=== PATIENT | male | born 1950 | race Caucasian/White ===

== ENCOUNTER 2019-07-30 11:33 | Emergency (ER) | payer MEDICARE ==
[~2019-07-30] VITALS: Ht 180.3 cm; Wt 111.1 kg
[~2019-07-30 11:33] MED LIST: AMLO5 PO; ATEN50; ATEN50 PO; Antivert25 MG; BUSP5 PO; CEPH500 PO; CLOP75 PO; COUMADIN; Cephalexin500 MG PO; FISH1000; FURO20; HYDACE5; HYDACE5 PO; HYDCHL25 PO; IBUP600 PO; NAPR220 PO; NAPR550 PO; OXYACE5T PO; Percocet 5-3251 EACH PO; Pravachol40 MG PO; SERT25 PO; SULTRIDS; SULTRIDS PO; TERA5 PO; WARF10 PO; WHEELCHAIR USE
[2019-07-30 12:13] LABS: BASOPHILS ABSOLUTE AUTO 0.09 K/mm3 (0.00-0.23); BASOPHILS PERCENT AUTO 1 % (0-2); EOSINOPHILS ABSOLUTE AUTO 0.12 K/mm3 (0.00-0.68); EOSINOPHILS PERCENT AUTO 1 % (0-6); Hematocrit 45.1 % (37.0-53.0); Hemoglobin 15.3 g/dL (13.5-17.5); IMMATURE GRAN ABSOLUTE AUTO 0.03 K/mm3 (0.00-0.10); IMMATURE GRAN PERCENT AUTO 0 % (0-1); LYMPHOCYTES ABSOLUTE AUTO 1.87 K/mm3 (0.84-5.20); LYMPHOCYTES PERCENT AUTO 21 % (21-46); MONOCYTES ABSOLUTE AUTO 0.54 K/mm3 (0.16-1.47); MONOCYTES PERCENT AUTO 6 % (4-13); Mean Corpuscular HGB 33.3 pg (26.0-34.0); Mean Corpuscular HGB Conc 33.9 g/dL (31.5-36.5); Mean Corpuscular Volume 98 fL (80-100); Mean Platelet Volume 9.1 fL (9.1-12.4); NEUTROPHILS PERCENT AUTO 70 % (41-73); Platelet Count 195 K/mm3 (150-400); RDW Coefficient Variation 11.9 % (11.7-14.2); RDW Standard Deviation 42.9 fL (35.1-46.3); White Blood Cell Count 8.85 K/mm3 (4.00-11.30)
[2019-07-30 12:24] LABS: Troponin I <0.015 ng/mL (0.000-0.040)
[2019-07-30 12:26] LABS: Alanine Aminotransfer (ALT/SGP 22 U/L (12-78); Albumin, Blood 3.1 g/dL (3.4-5.0); Albumin/Globulin Ratio 0.9 (0.8-1.8); Alk Phos 94 U/L (50-136); Anion Gap 7 mmol/L (6-16); Aspartate Aminotrans (AST/SGOT 22 U/L (12-37); Bilirubin, Total 0.7 mg/dL (0.1-1.0); Blood Urea Nitrogen 5 mg/dL (8-24); Bun/Creatinine Ratio 5.8 (12.0-20.0); CO2, Blood 28 mmol/L (21-32); Calcium, Blood 8.8 mg/dL (8.5-10.1); Chloride, Blood 105 mmol/L (98-108); Creatinine, Blood 0.86 mg/dL (0.60-1.20); Globulin, Blood 3.6 g/dL (2.2-4.0); Glomerular Filtration Rate >60 (60-); Glucose, Blood 90 mg/dL (70-99); Potassium, Blood 3.5 mmol/L (3.5-5.5); Sodium, Blood 140 mmol/L (136-145); Total Protein, Blood 6.7 g/dL (6.4-8.2)
--- NOTE | 2019-07-30 12:29 | NUR ---
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
== END 2019-07-30 14:11 | disposition home or self-care (01) ==
LOC: ER 11:33
PROVIDERS: Emergency Medicine
DX: R07.89 Other chest pain (principal); I10 Essential (primary) hypertension; F17.200 Nicotine dependence, unspecified, uncomplicated; Z88.0 Allergy status to penicillin; Z86.73 Personal history of transient ischemic attack (TIA), and cerebral infarction without residual deficits; Z79.899 Other long term (current) drug therapy
CPT/HCPCS: 36415; 71046; 80053; 84484; 85025; 93005; 93010; 96374; 99284-25; J1885

== ENCOUNTER → 2020-05-27 | Outpatient (CLI) | payer MEDICARE, OTHER ==
[~2020-05-27] MED LIST changes: +Aspirin EC81 MG PO; +BUPR75 PO; +LOSA25 PO; +NAPR500 PO
== END | disposition home or self-care (01) ==
LOC: LAB SHORT 19:50
DX: M71.121 Other infective bursitis, right elbow (principal)
CPT/HCPCS: 87070; 87077; 87147; 87186; 87205

== ENCOUNTER 2020-08-10 19:09 | Emergency (ER) | payer OTHER ==
[~2020-08-10] VITALS: Ht 180.3 cm; Wt 113.4 kg
[~2020-08-10 19:09] MED LIST changes: -Aspirin EC81 MG PO; -BUPR75 PO; -LOSA25 PO; -NAPR500 PO
[2020-08-10 19:53] LABS: BASOPHILS PERCENT AUTO 1 % (0-2); EOSINOPHILS ABSOLUTE AUTO 0.12 K/mm3 (0.00-0.68); EOSINOPHILS PERCENT AUTO 1 % (0-6); Hematocrit 48.7 % (37.0-53.0); Hemoglobin 16.8 g/dL (13.5-17.5); IMMATURE GRAN ABSOLUTE AUTO 0.04 K/mm3 (0.00-0.10); IMMATURE GRAN PERCENT AUTO 0 % (0-1); LYMPHOCYTES ABSOLUTE AUTO 1.84 K/mm3 (0.84-5.20); LYMPHOCYTES PERCENT AUTO 19 % (21-46); MONOCYTES ABSOLUTE AUTO 0.48 K/mm3 (0.16-1.47); MONOCYTES PERCENT AUTO 5 % (4-13); Mean Corpuscular HGB 32.8 pg (26.0-34.0); Mean Corpuscular HGB Conc 34.5 g/dL (31.5-36.5); Mean Corpuscular Volume 95 fL (80-100); Mean Platelet Volume 9.4 fL (9.1-12.4); NEUTROPHILS PERCENT AUTO 73 % (41-73); Platelet Count 213 K/mm3 (150-400); RDW Coefficient Variation 11.9 % (11.7-14.2); RDW Standard Deviation 42.3 fL (35.1-46.3); Red Blood Cell Count 5.12 M/mm3 (4.30-5.90); White Blood Cell Count 9.68 K/mm3 (4.00-11.30)
[2020-08-10 20:12] LABS: Alanine Aminotransfer (ALT/SGP 24 U/L (12-78); Albumin, Blood 3.7 g/dL (3.4-5.0); Alk Phos 83 U/L (50-136); Anion Gap 14 mmol/L (6-16); Aspartate Aminotrans (AST/SGOT 30 U/L (12-37); Bilirubin, Total 0.5 mg/dL (0.1-1.0); Blood Urea Nitrogen 6 mg/dL (8-24); Bun/Creatinine Ratio 8.4 (12.0-20.0); CO2, Blood 19 mmol/L (21-32); Chloride, Blood 104 mmol/L (98-108); Creatinine, Blood 0.72 mg/dL (0.60-1.20); Globulin, Blood 3.7 g/dL (2.2-4.0); Glomerular Filtration Rate >60 (60-); Glucose, Blood 88 mg/dL (70-99); Potassium, Blood 3.7 mmol/L (3.5-5.5); Sodium, Blood 137 mmol/L (136-145); Total Protein, Blood 7.4 g/dL (6.4-8.2); Troponin I <0.015 ng/mL (0.000-0.040)
[2020-08-10] MEDS ORDERED: LOSA25 PO (21:52)
[2020-08-10] MEDS ORDERED: Aspirin EC81 MG PO (21:52)
[2020-08-10] MEDS ORDERED: NAPR500 PO (21:53)
[2020-08-10] MEDS ORDERED: BUPR75 PO (21:53)
== END 2020-08-10 22:20 | disposition home or self-care (01) ==
LOC: ER 19:09
PROVIDERS: Physician Assistant
DX: R05 Cough (principal)
CPT/HCPCS: 36415; 71046; 71260; 80053; 83880; 84484; 85025; 85379; 93005; 93010; 99284-25; Q9967

== ENCOUNTER 2021-10-01 21:13 | Inpatient (IN) | payer MEDICARE, OTHER ==
[~2021-10-01] VITALS: Ht 180.3 cm; Wt 113.4 kg
[~2021-10-01 21:13] MED LIST changes: +Aspirin EC81 MG PO; +BUPR75 PO; +LOSA25 PO; +NAPR500 PO
[2021-10-01 21:41] LABS: BASOPHILS ABSOLUTE AUTO 0.05 K/mm3 (0.00-0.23); BASOPHILS PERCENT AUTO 1 % (0-2); EOSINOPHILS ABSOLUTE AUTO 0.08 K/mm3 (0.00-0.68); EOSINOPHILS PERCENT AUTO 1 % (0-6); Hematocrit 47.7 % (37.0-53.0); Hemoglobin 16.3 g/dL (13.5-17.5); IMMATURE GRAN ABSOLUTE AUTO 0.03 K/mm3 (0.00-0.10); IMMATURE GRAN PERCENT AUTO 1 % (0-1); LYMPHOCYTES ABSOLUTE AUTO 1.51 K/mm3 (0.84-5.20); LYMPHOCYTES PERCENT AUTO 23 % (21-46); MONOCYTES ABSOLUTE AUTO 0.34 K/mm3 (0.16-1.47); MONOCYTES PERCENT AUTO 5 % (4-13); Mean Corpuscular HGB 33.1 pg (26.0-34.0); Mean Corpuscular HGB Conc 34.2 g/dL (31.5-36.5); Mean Corpuscular Volume 97 fL (80-100); NEUTROPHILS ABSOLUTE AUTO 4.44 K/mm3 (1.96-9.15); NEUTROPHILS PERCENT AUTO 69 % (41-73); Platelet Count 189 K/mm3 (150-400); RDW Coefficient Variation 12.8 % (11.7-14.2); RDW Standard Deviation 45.9 fL (35.1-46.3); Red Blood Cell Count 4.92 M/mm3 (4.30-5.90); White Blood Cell Count 6.45 K/mm3 (4.00-11.30)
[2021-10-01 21:59] LABS: Alanine Aminotransfer (ALT/SGP 33 U/L (12-78); Albumin, Blood 3.2 g/dL (3.4-5.0); Alk Phos 79 U/L (50-136); Anion Gap 9 mmol/L (6-16); Aspartate Aminotrans (AST/SGOT 25 U/L (12-37); Bilirubin, Total 0.4 mg/dL (0.1-1.0); Blood Urea Nitrogen 9 mg/dL (8-24); Bun/Creatinine Ratio 11.3 (12.0-20.0); CO2, Blood 27 mmol/L (21-32); Calcium, Blood 8.8 mg/dL (8.5-10.1); Chloride, Blood 103 mmol/L (98-108); Creatinine, Blood 0.79 mg/dL (0.60-1.20); Globulin, Blood 3.2 g/dL (2.2-4.0); Glomerular Filtration Rate >60 (60-); Glucose, Blood 94 mg/dL (70-99); Potassium, Blood 3.7 mmol/L (3.5-5.5); Sodium, Blood 139 mmol/L (136-145); Total Protein, Blood 6.4 g/dL (6.4-8.2)
[2021-10-01 22:49] LABS: International Normalized Ratio 1.07; Prothrombin Time Results 11.2 Sec (9.7-11.5)
[2021-10-02 00:26] LABS: Source, Urine Clean Catch
[2021-10-02 00:35] LABS: Appearance, Urine Hazy (Clear); Bilirubin, Urine Neg (Neg); Blood, Urine 1+ (Neg); Color, Urine Pale Yellow (P-Yellow); Glucose Qualitative, Urine Neg (Neg); Ketones, Urine Neg (Neg); Leukocyte Esterase, Urine 1+ (Neg); Nitrite, Urine Pos (Neg); Protein, Urine Neg (Neg); Urobilinogen, Urine NORM (Normal)
[2021-10-02 00:42] LABS: Bacteria Many /hpf; Red Blood Cells, Urine Rare /hpf (0-2); Squamous Epithelial Cells Rare /hpf (Few)
--- NOTE | 2021-10-02 04:58 | NUR ---
0145: REPORT RECIEVED FROM MONAE GUERRERO AT ER. 0210: PT WAS TRANSFERRED IN ROOM VIA GURNEY. AOX4. MILDLY HYPOTENSIVE BUT ASYMPTOMATIC. PT DENIES CHEST PAIN, SOB, AND DIZZINESS. AFEBRILE. R FLANK SIDE HAS LARGE HEMATOMA. PT REPORTS PAIN IS TOLERABLE. AMBULATES IN THE BATHROOM WITH FWW AND SBA. PAIN MANAGED WITH MORPHINE WHICH WAS GIVEN AT ER LAST. PT IS NPO. DENIES N/V. BED ALARM IN PLACE, BECAUSE HAS BEEN IMPULSIVE. VOIDING WITHOUT COMPLAINTS. BT HYPOACTIVE. LUNGS ARE CLEAR. PT DENIES N/T AT THIS TIME. DENIES H/A. PT HAS SOME ABRASION IN HIS HEAD FROM A FALL 2 DAYS AGO. CALL LIGHT WITHIN REACH. REORIENT IN ROOM.WILL CONTINUE TO MONITOR PT.
[2021-10-02 06:23] LABS: BASOPHILS ABSOLUTE AUTO 0.05 K/mm3 (0.00-0.23); BASOPHILS PERCENT AUTO 1 % (0-2); EOSINOPHILS ABSOLUTE AUTO 0.07 K/mm3 (0.00-0.68); EOSINOPHILS PERCENT AUTO 1 % (0-6); Hematocrit 42.7 % (37.0-53.0); Hemoglobin 14.4 g/dL (13.5-17.5); IMMATURE GRAN ABSOLUTE AUTO 0.01 K/mm3 (0.00-0.10); IMMATURE GRAN PERCENT AUTO 0 % (0-1); LYMPHOCYTES ABSOLUTE AUTO 2.06 K/mm3 (0.84-5.20); LYMPHOCYTES PERCENT AUTO 29 % (21-46); MONOCYTES ABSOLUTE AUTO 0.49 K/mm3 (0.16-1.47); MONOCYTES PERCENT AUTO 7 % (4-13); Mean Corpuscular HGB 32.9 pg (26.0-34.0); Mean Corpuscular HGB Conc 33.7 g/dL (31.5-36.5); Mean Corpuscular Volume 98 fL (80-100); Mean Platelet Volume 9.3 fL (9.1-12.4); NEUTROPHILS ABSOLUTE AUTO 4.38 K/mm3 (1.96-9.15); NEUTROPHILS PERCENT AUTO 62 % (41-73); Platelet Count 162 K/mm3 (150-400); RDW Coefficient Variation 12.9 % (11.7-14.2); RDW Standard Deviation 46.6 fL (35.1-46.3); Red Blood Cell Count 4.38 M/mm3 (4.30-5.90); White Blood Cell Count 7.06 K/mm3 (4.00-11.30)
[2021-10-02 06:47] LABS: Anion Gap 6 mmol/L (6-16); Blood Urea Nitrogen 8 mg/dL (8-24); Bun/Creatinine Ratio 10.6 (12.0-20.0); CO2, Blood 28 mmol/L (21-32); Calcium, Blood 8.6 mg/dL (8.5-10.1); Chloride, Blood 105 mmol/L (98-108); Creatinine, Blood 0.76 mg/dL (0.60-1.20); Glomerular Filtration Rate >60 (60-); Glucose, Blood 91 mg/dL (70-99); Potassium, Blood 3.9 mmol/L (3.5-5.5); Sodium, Blood 139 mmol/L (136-145)
--- NOTE | 2021-10-02 18:31 | NUR ---
DISCHARGE SUMMARY: A&Ox4. SELF-AMBULATING WITH FWW TO BATHROOM FOR VOIDING AND STOOLING. NO C/O CP OR SOB. TOLERATING PO INTAKE WITHOUT N/V. PAIN CONTROLLED. IV REMOVED; CATH TIP INTACT. ALL QUESTIONS ANSWERED. PT LEFT UNIT IN A W/C ESCORT WITH ALL VALUABLES AND DISCHARGE PACKET WITH A FRIEND VIA PRIVATE VEHICLE.
== END 2021-10-02 17:15 | disposition home or self-care (01) | DRG 605 ==
LOC: ER 21:13 → SURS 10-02 01:04
PROVIDERS: Emergency Medicine; Student in an Organized Health Care Education/Training Program; ADMIT Surgery
DX: S30.1XXA Contusion of abdominal wall, initial encounter (principal); N39.0 Urinary tract infection, site not specified; S01.01XA Laceration without foreign body of scalp, initial encounter; I10 Essential (primary) hypertension; G89.29 Other chronic pain; M54.9 Dorsalgia, unspecified; F17.200 Nicotine dependence, unspecified, uncomplicated; R29.6 Repeated falls; Z91.81 History of falling; Z90.49 Acquired absence of other specified parts of digestive tract; Z86.718 Personal history of other venous thrombosis and embolism; Z86.73 Personal history of transient ischemic attack (TIA), and cerebral infarction without residual deficits; Z98.890 Other specified postprocedural states; Z88.0 Allergy status to penicillin; Z79.82 Long term (current) use of aspirin; Z79.899 Other long term (current) drug therapy; W18.30XA Fall on same level, unspecified, initial encounter
CPT/HCPCS: 36415; 70450; 74177; 80048; 80053; 81001; 85025; 85610; 85730; 86850; 86900; 86901; 87086; 96374; 96375; 99285-25; A9270; J0696; J2270; J2405; Q9967